=== PATIENT | male | born 1950 | race Two or more races ===

== ENCOUNTER 2017-11-06 10:58 | Outpatient (CLI) | payer OTHER ==
[~2017-11-06 10:58] MED LIST: COUMADIN1 MG; SYNTHROID50 MCG
== END 2017-11-06 11:08 | disposition home or self-care (01) ==
LOC: NUCLEAR 10:58
DX: I87.2 Venous insufficiency (chronic) (peripheral) (principal)

== ENCOUNTER → 2018-05-03 | Outpatient (CLI) | payer OTHER | END | disposition home or self-care (01) | LOC: NUCLEAR 09:57 | DX: I82.431 Acute embolism and thrombosis of right popliteal vein (principal) ==

== ENCOUNTER 2018-06-04 14:48 | Emergency (ER) | payer OTHER ==
[~2018-06-04] VITALS: Ht 177.8 cm; Wt 65.3 kg
== END 2018-06-04 18:29 | disposition home or self-care (01) ==
LOC: ER 14:48
DX: K29.70 Gastritis, unspecified, without bleeding (principal); R50.9 Fever, unspecified

== ENCOUNTER 2019-12-03 07:56 | Outpatient (CLI) | payer OTHER | END 2019-12-03 08:01 | disposition home or self-care (01) | LOC: NUCLEAR 07:56 | PROVIDERS: ATTEND Internal Medicine Cardiovascular Disease | DX: I20.9 Angina pectoris, unspecified (principal) | CPT/HCPCS: 78452; 93017; A9500 ==

== ENCOUNTER → 2021-11-10 | Outpatient (CLI) | payer OTHER | END | disposition home or self-care (01) | LOC: NUCLEAR 08:50 | PROVIDERS: ATTEND Internal Medicine | DX: I87.2 Venous insufficiency (chronic) (peripheral) (principal); Z88.1 Allergy status to other antibiotic agents; Z88.0 Allergy status to penicillin; Z88.8 Allergy status to other drugs, medicaments and biological substances ==

== ENCOUNTER 2022-09-26 10:43 | Outpatient (CLI) | payer OTHER | END 2022-09-26 10:45 | disposition home or self-care (01) | LOC: NUCLEAR 10:43 | PROVIDERS: ATTEND Internal Medicine | DX: I82.409 Acute embolism and thrombosis of unspecified deep veins of unspecified lower extremity (principal) ==

== ENCOUNTER 2023-02-27 08:16 | Outpatient (CLI) | payer OTHER | END 2023-02-27 08:17 | disposition home or self-care (01) | LOC: NUCLEAR 08:16 | PROVIDERS: ATTEND Internal Medicine | DX: I82.409 Acute embolism and thrombosis of unspecified deep veins of unspecified lower extremity (principal) ==